=== PATIENT | female | born 2000 | race Caucasian/White ===

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

== ENCOUNTER 2020-03-07 20:29 | Emergency (ER) | payer SELFPAY ==
[2020-03-07 20:45] VITALS: BP 105/77; PULSE 66
[2020-03-07] MEDS ORDERED: predniSONE 20 MG Tab PO ONE (21:05)
[2020-03-07] MEDS: Albuterol/Ipratropium 3.0-0.5 MG/3 ML Neb Soln NEB ONE ×2 (21:10→21:18)
[2020-03-07] MEDS ORDERED: Albuterol/Ipratropium 3.0-0.5 MG/3 ML Neb Soln ONE (21:15)
--- NOTE | 2020-03-07 21:15 | EDM.PDOC ---
ED HPI GENERAL MEDICAL PROBLEM - General Chief Complaint: Respiratory Problem Stated Complaint: BREATHING PROBLEM Time Seen by Provider: 03/07/20 20:42 Source of Information: Reports: Patient History Limitations: Reports: No Limitations - History of Present Illness INITIAL COMMENTS - FREE TEXT/NARRATIVE: 19-year-old female with history of asthma presents with worsening dyspnea over the last week. Denies fever, chest pain, palpitation. She uses her inhaler with no relief. She has been noting a dry cough. Denies sick contacts. She has never been intubated or hospitalized for asthma. ROS: A 10-point review of systems, other than pertinent positives and negatives as stated per HPI, is otherwise negative PHYSICAL EXAM General: AOx4, GCS = 15, No distress HEENT: dry mucous membrane Neck: supple, no meningismus, no Kernig or Brudzinski Cardiac: S1S2 RRR Respiratory: Diminished breath sounds bilaterally with expiratory wheezing, no retractions, able to speak full sentences with no difficulty. Abdomen: Soft, nontender, no rebound or guarding, nondistended, no pulsatile mass. Back: nontender Musculoskeletal: NVI distally, no deformity Neuro: No focal deficits, CN 2 - 12 WNL. Right Chest Pain Score (Numeric/FACES): 5 - Related Data Allergies Allergy/AdvReac Type Severity Reaction Status Date / Time No Known Allergies Allergy Verified 03/07/20 20:41 Home Meds: Home Meds Albuterol [Proair HFA] 2 puff INH ASDIRECTED PRN 03/07/20 [History] Benzonatate 100 mg PO BID #10 capsule 03/07/20 [Rx] predniSONE [Prednisone] 50 mg PO DAILY #5 tablet 03/07/20 [Rx] Past Medical History - Past Health History Medical/Surgical History: Denies Medical/Surgical History Cardiovascular History: Reports: None Respiratory History: Reports: Asthma Gastrointestinal History: Reports: None Genitourinary History: Reports: None Psychiatric History: Reports: Depression Dermatologic History: Reports: None - Infectious Disease History Infectious Disease History: Reports: None - Past Surgical History HEENT Surgical History: Reports: Oral Surgery, Tonsillectomy Cardiovascular Surgical History: Reports: None GI Surgical History: Reports: None Social & Family History - Family History HEENT: Reports: None - Tobacco Use Smoking Status *Q: Former Smoker Used Tobacco, but Quit: Yes Month/Year Tobacco Last Used: 2020 - Caffeine Use Caffeine Use: Reports: Coffee, Energy Drinks, Soda, Tea - Recreational Drug Use Recreational Drug Use: Yes Recreational Drug Type: Reports: Marijuana/Hashish Recreational Drug Use Frequency: Daily ED ROS GENERAL - Review of Systems Review Of Systems: Comprehensive ROS is negative, except as noted in HPI. ED EXAM, GENERAL - Physical Exam Exam: See Below (see dictation) Course - Vital Signs Last Recorded V/S: Last Vital Signs Temp 97.6 F 03/07/20 20:42 Pulse 66 03/07/20 20:42 Resp 17 03/07/20 20:42 BP 105/77 03/07/20 20:42 Pulse Ox 95 03/07/20 20:42 - Orders/Labs/Meds Orders: Active Orders 24 hr Category Date Time Status RT Aerosol Therapy [RC] ASDIRECTED Care 03/07/20 21:05 Active RT Aerosol Therapy [RC] ASDIRECTED Care 03/07/20 21:17 Active Meds: Medications Discontinued Medications Generic Name Dose Route Start Last Admin Trade Name Ramy PRN Reason Stop Dose Admin Albuterol/Ipratropium 3 ml 03/07/20 21:04 03/07/20 21:10 Duoneb 3.0-0.5 Mg/3 Ml NEB 03/07/20 21:05 3 ml ONETIME ONE Administration Albuterol/Ipratropium 3 ml 03/07/20 21:17 03/07/20 21:18 Duoneb 3.0-0.5 Mg/3 Ml NEB 03/07/20 21:18 3 ml ONETIME ONE Administration Albuterol/Ipratropium Confirm 03/07/20 21:15 03/07/20 21:19 Duoneb 3.0-0.5 Mg/3 Ml Administered 03/07/20 21:16 6 ml Dose Administration 6 ml .ROUTE .STK-MED ONE Prednisone 60 mg 03/07/20 21:05 03/07/20 21:11 Prednisone PO 03/07/20 21:06 60 mg ONETIME ONE Administration - Re-Assessments/Exams Free Text/Narrative Re-Assessment/Exam: 03/07/200 After triple DuoNeb treatment and prednisone 60 mg, she improved clinically and is stable for discharge. I performed a repeat examination and the patient has not demonstrated any new abnormal findings. Patient exhibits normal vital signs and has exhibited a normal gait. I advised the patient to return to the ER for reevaluation if symptoms worsened, and to follow up with their PCP within 2-3 days. MEDICAL DECISION MAKING: I reviewed the patients past medical records, lab and radiographic findings. I discussed the case with the patient. My differential diagnosis included: Asthma exacerbation, bronchitis, pneumonia. Chest x-ray did not reveal any underlying infiltrates concerning for infection. I do not suspect COVID given her clinical history. Her clinical presentation is consistent with asthma exacerbation. She improved after breathing treatments and prednisone, she was not hypoxic in the ER, she was not in respiratory distress, and she was able to speak full sentences with no difficulty, I do not think she needs to be hospitalized. Departure - Departure Time of Disposition: 22:10 Disposition: Home, Self-Care 01 Condition: Good Clinical Impression: Exacerbation of asthma - Discharge Information *PRESCRIPTION DRUG MONITORING PROGRAM REVIEWED*: Not Applicable *COPY OF PRESCRIPTION DRUG MONITORING REPORT IN PATIENT NOHELIA: Not Applicable Prescriptions: Benzonatate 100 mg PO BID #10 capsule predniSONE [Prednisone] 50 mg PO DAILY #5 tablet Instructions: Asthma, Adult Referrals: PCP,None [Primary Care Provider] - Forms: ED Department Discharge Additional Instructions: The following information is given to patients seen in the emergency department who are being discharged to home. This information is to outline your options for follow-up care. We provide all patients seen in our emergency department with a follow-up referral. The need for follow-up, as well as the timing and circumstances, are variable depending upon the specifics of your emergency department visit. If you don't have a primary care physician on staff, we will provide you with a referral. We always advise you to contact your personal physician following an emergency department visit to inform them of the circumstance of the visit and for follow-up with them and/or the need for any referrals to a consulting specialist. The emergency department will also refer you to a specialist when appropriate. This referral assures that you have the opportunity for follow-up care with a specialist. All of these measure are taken in an effort to provide you with optimal care, which includes your follow-up. Under all circumstances we always encourage you to contact your private physician who remains a resource for coordinating your care. When calling for follow-up care, please make the office aware that this follow-up is from your recent emergency room visit. If for any reason you are refused follow-up, please contact the [facility] Emergency Department at and asked to speak to the emergency department charge nurse. If you do not have a primary care doctor, please follow up with the clinics below within 3-5 days. [facility] - Primary Care [address] [place], [place] [id number] [place] [address] Sepsis Event Note (ED) - Evaluation Sepsis Screening Result: No Definite Risk - Focused Exam Vital Signs: Vital Signs Temp Pulse Resp BP Pulse Ox 03/07/20 20:42 97.6 F 66 17 105/77 95 - My Orders Last 24 Hours: My Active Orders 03/07/20 21:05 RT Aerosol Therapy [RC] ASDIRECTED 03/07/20 21:17 RT Aerosol Therapy [RC] ASDIRECTED - Assessment/Plan Last 24 Hours: My Active Orders 03/07/20 21:05 RT Aerosol Therapy [RC] ASDIRECTED 03/07/20 21:17 RT Aerosol Therapy [RC] ASDIRECTED
[2020-03-07] MEDS ORDERED: Albuterol/Ipratropium 3.0-0.5 MG/3 ML Neb Soln NEB ONE (21:17)
--- NOTE | 2020-03-07 22:13 | CR ---
Chest: 2 views of the chest were obtained. Comparison: No prior chest imaging. Heart size and mediastinum are normal. Lungs show no acute parenchymal change. Bony structures are within normal limits for the patient's age. Impression: 1. Nothing acute is appreciated on 2 view chest x-ray. Diagnostic code #1 Study was dictated in MDT
[2020-03-07] MEDS ORDERED: Benzonatate 100 MG Cap PO ONE (22:36)
[2020-03-07] MEDS ORDERED: Benzonatate 100 MG Cap ONE (22:36)
== END 2020-03-07 22:39 | disposition home or self-care (01) ==
LOC: MW.ED 20:29
DX: J45.901 Unspecified asthma with (acute) exacerbation (principal); Z87.891 Personal history of nicotine dependence; Z79.899 Other long term (current) drug therapy
CPT/HCPCS: 71046; 94640; 99285; A9270; 99283; J7620-GY

== ENCOUNTER 2020-03-28 14:33 | Emergency (ER) | payer SELFPAY ==
--- NOTE | 2020-03-28 14:42 | EDM.PDOC ---
ED HPI GENERAL MEDICAL PROBLEM - General Chief Complaint: Respiratory Problem Stated Complaint: CHEST PAIN/SOB Time Seen by Provider: 03/28/20 14:35 Source of Information: Reports: Patient History Limitations: Reports: No Limitations - History of Present Illness INITIAL COMMENTS - FREE TEXT/NARRATIVE: HISTORY AND PHYSICAL: History of present illness: Patient is a 19-year-old female who presents to the emergency room with complaints of shortness of breath, cough and intermittent chest pain. Patient was seen in the emergency room on 03/07/2024 for the same symptoms, stating this has been ongoing for approximately 1 month. She had a negative chest x-ray. She was given triple neb and oral prednisone. Discharged home with instruction to follow-up with her primary care provider. She states she did feel some improvement after completing the 5-day course of prednisone but "as soon as it was done I felt like my symptoms came back". She does not have a nebulizer machine available to her at home but has been using her inhaler -does not find much relief with this. The chest pain is generalized and only noticeable when frequently coughing. Patient denies any fever, chills, headache, change in vision, syncope or near syncope. Denies any GI or symptoms. 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 History of asthma. + Former smoker. Review of systems: As per history of present illness and below otherwise all systems reviewed and negative. Past medical history: As per history of present illness and as reviewed below otherwise noncontributory. Surgical history: As per history of present illness and as reviewed below otherwise noncontributory. Social history: See social history for further information Family history: As per history of present illness and as reviewed below otherwise noncontributory. Physical exam: General: Well-developed and well-nourished 19-year-old female. Alert and oriented. Nontoxic-appearing and in no acute distress. VSS and have been reviewed by me. HEENT: Atraumatic, normocephalic, pupils equal and reactive bilaterally, negative for conjunctival pallor or scleral icterus, mucous membranes moist, TMs normal bilaterally, throat clear, neck supple, nontender, trachea midline. No drooling or trismus noted. No meningeal signs. No hot potato voice noted. Lungs: Left posterior base inspiratory wheezing otherwise clear to auscultation, breath sounds equal bilaterally, chest nontender. Heart: S1S2, regular rate and rhythm without overt murmur Abdomen: Soft, nondistended, nontender. Negative for masses or hepatosplenomegaly. Negative for costovertebral tenderness. Skin: Intact, warm, dry. No lesions or rashes noted. Extremities: Atraumatic, moves all extremities per self without difficulty or deficits, negative for cords or calf pain. Neurovascular unremarkable. Neuro: Awake, alert, oriented. Cranial nerves II through XII unremarkable. Cerebellum unremarkable. Motor and sensory unremarkable throughout. Exam nonfocal. Notes: Due to her second visit today; will add COVID screening onto her work-up today- this is negative. My suspicion for a pulmonary embolism is very low. EKG shows a normal sinus rhythm with a rate of 68, no concerning findings are noted. Chest x-ray shows no acute findings. Due to the longevity of her symptoms I am going to put her on a Z-Senthil. She did states she had relief when using the nebulizer machine, will give her a prescription for a machine to be filled at [facility]. We discussed signs and symptoms that would prompt her to return to the emergency room. Voices understanding and is agreeable to plan of care. Denies any further questions or concerns at this time. Diagnostics: CXR, COVID, EKG Therapeutics: None Prescription: Duo Neb, Z-Senthil, Medrol Dosepak Impression: Asthma exacerbation Plan: 1. Your chest x-ray is within normal limits, no obvious pneumonia. Negative COVID-19 screening. Your EKG shows a normal sinus rhythm, no concerns of heart involvement. 2. Please fill the nebulizer prescription and use as directed/needed. 3. Follow up with your primary care provider as we discussed. Return to the ED as needed and as discussed. Definitive disposition and diagnosis as appropriate pending reevaluation and review of above. Duration: Week(s): - Related Data Allergies Allergy/AdvReac Type Severity Reaction Status Date / Time No Known Allergies Allergy Verified 03/28/20 14:42 Home Meds: Home Meds Albuterol [Proair HFA] 2 puff INH ASDIRECTED PRN 03/07/20 [History] Albuterol/Ipratropium [DuoNeb 3.0-0.5 MG/3 ML] 1 ampule INH Q4HR PRN #1 box 03/28/20 [Rx] Azithromycin [Zithromax] 1 dose PO DAILY 5 Days #6 tab 03/28/20 [Rx] methylPREDNISolone [Medrol] 1 dose PO DAILY 6 Days #1 dospk 03/28/20 [Rx] Past Medical History - Past Health History Medical/Surgical History: Denies Medical/Surgical History Cardiovascular History: Reports: None Respiratory History: Reports: Asthma Gastrointestinal History: Reports: None Genitourinary History: Reports: None Psychiatric History: Reports: Depression Dermatologic History: Reports: None - Infectious Disease History Infectious Disease History: Reports: None - Past Surgical History HEENT Surgical History: Reports: Oral Surgery, Tonsillectomy Cardiovascular Surgical History: Reports: None GI Surgical History: Reports: None Social & Family History - Family History HEENT: Reports: None - Caffeine Use Caffeine Use: Reports: Coffee, Energy Drinks, Soda, Tea ED ROS GENERAL - Review of Systems Review Of Systems: Comprehensive ROS is negative, except as noted in HPI. ED EXAM, GENERAL - Physical Exam Exam: See Below (See dictation) Course - Vital Signs Last Recorded V/S: Last Vital Signs Temp 97.4 F 03/28/20 14:43 Pulse 86 03/28/20 14:43 Resp 20 03/28/20 14:43 BP 115/70 03/28/20 14:43 Pulse Ox 98 03/28/20 14:43 - Orders/Labs/Meds Orders: Active Orders 24 hr Category Date Time Status EKG Documentation Completion [RC] STAT Care 03/28/20 14:46 Active Chest 2V [CR] Stat Exams 03/28/20 14:46 Taken Labs: Laboratory Tests 03/28/20 Range/Units 15:08 COVID-19 (JANNETH) NEGATIVE (NEGATIVE) Departure - Departure Time of Disposition: 15:51 Disposition: Home, Self-Care 01 Clinical Impression: Exacerbation of asthma Qualifiers: Asthma severity: moderate Asthma persistence: persistent Qualified Code(s): J45.41 - Moderate persistent asthma with (acute) exacerbation - Discharge Information Prescriptions: Albuterol/Ipratropium [DuoNeb 3.0-0.5 MG/3 ML] 1 ampule INH Q4HR PRN #1 box PRN Reason: Dyspnea methylPREDNISolone [Medrol] 1 dose PO DAILY 6 Days #1 dospk Azithromycin [Zithromax] 1 dose PO DAILY 5 Days #6 tab Instructions: Asthma, Adult, [id number] Referrals: PCP,None [Primary Care Provider] - Forms: ED Department Discharge Additional Instructions: The following information is given to patients seen in the emergency department who are being discharged to home. This information is to outline your options for follow-up care. We provide all patients seen in our emergency department with a follow-up referral. The need for follow-up, as well as the timing and circumstances, are variable depending upon the specifics of your emergency department visit. If you don't have a primary care physician on staff, we will provide you with a referral. We always advise you to contact your personal physician following an emergency department visit to inform them of the circumstance of the visit and for follow-up with them and/or the need for any referrals to a consulting specialist. The emergency department will also refer you to a specialist when appropriate. This referral assures that you have the opportunity for follow-up care with a sp ecialist. All of these measure are taken in an effort to provide you with optimal care, which includes your follow-up. Under all circumstances we always encourage you to contact your private physicia n who remains a resource for coordinating your care. When calling for follow-up care, please make the office aware that this follow-up is from your recent emergency room visit. If for any reason you are refused follow-up, please contact the [facility] Emergency Department at and asked to speak to the emergency department charge nurse. [facility] [address] [place] [id number] [address] Thank you for choosing the [facility] emergency department in [place] for your medical needs today. It was a pleasure caring for you. You were seen in the emergency department for respiratory concerns. 1. Your chest x-ray is within normal limits, no obvious pneumonia. Negative COVID-19 screening. Your EKG shows a normal sinus rhythm, no concerns of heart involvement. Due to your history of asthma and longevity of symptoms I am going to treat you with antibiotics and steroids. 2. Please fill the nebulizer prescription and use as directed/needed. 3. Follow up with your primary care provider as we discussed. Return to the ED as needed and as discussed. Sepsis Event Note (ED) - Focused Exam Vital Signs: Vital Signs Temp Pulse Resp BP Pulse Ox 03/28/20 14:43 97.4 F 86 20 115/70 98 - My Orders Last 24 Hours: My Active Orders 03/28/20 14:46 EKG Documentation Completion [RC] STAT Chest 2V [CR] Stat - Assessment/Plan Last 24 Hours: My Active Orders 03/28/20 14:46 EKG Documentation Completion [RC] STAT Chest 2V [CR] Stat
[2020-03-28 15:08] VITALS: BP 115/70
--- NOTE | 2020-03-28 16:05 | CR ---
Chest: 2 views of the chest were obtained. Comparison: Prior chest x-ray of 03/07/20. Heart size and mediastinum are normal. Lungs are clear with no acute parenchymal change. Bony structures are unremarkable. Impression: 1. Nothing acute is seen on 2 view chest x-ray. Diagnostic code #1 This report was dictated in MDT
[2020-03-28 18:06] VITALS: PULSE 84
== END 2020-03-28 16:31 | disposition home or self-care (01) ==
LOC: MW.ED 14:33
DX: J45.41 Moderate persistent asthma with (acute) exacerbation (principal); Z20.828 Contact with and (suspected) exposure to other viral communicable diseases
CPT/HCPCS: 71046; 71046-26; 93005; 99282; 99285-25; U0002

== ENCOUNTER 2021-10-05 17:02 | Emergency (ER) | payer SELFPAY ==
[2021-10-05 19:16] LABS: BLOOD UREA NITROGEN,BUN 7 mg/dL (7.0-18.0); CARBON DIOXIDE,CO2 23.6 mmol/L (21.0-32.0); CHLORIDE,CL 106 mmol/L (98-107); GLUCOSE RANDOM 96 mg/dL (74-106); POTASSIUM,K 3.9 mmol/L (3.5-5.1); SODIUM,NA 139 mmol/L (136-145)
[2021-10-05 19:33] VITALS: BP 112/73; PULSE 61
== END 2021-10-05 19:38 | disposition home or self-care (01) ==
LOC: MW.ED 17:02
DX: N92.0 Excessive and frequent menstruation with regular cycle (principal); J45.909 Unspecified asthma, uncomplicated; Z72.0 Tobacco use
CPT/HCPCS: 36415; 80053; 81001; 84703; 85025; 99284

== ENCOUNTER 2022-07-25 17:09 | Emergency (ER) | payer SELFPAY ==
[2022-07-25] MEDS ORDERED: cefTRIAXone 1 GM Vial IM ONE (18:06)
[2022-07-25] MEDS ORDERED: Lidocaine 1% PF 2 ML SDV INJECT ONE (18:11)
[2022-07-25] MEDS ORDERED: Phenazopyridine 200 MG Tab PO ONE (18:11)
[2022-07-25 18:43] VITALS: BP 111/58; PULSE 91
== END 2022-07-25 18:42 | disposition home or self-care (01) ==
LOC: MW.ED 17:09
DX: N39.0 Urinary tract infection, site not specified (principal); Z88.0 Allergy status to penicillin
CPT/HCPCS: 81001; 81025; 87086; 96372; 99284; A9270; J0696

== ENCOUNTER 2024-08-06 13:54 | Emergency (ER) | payer BC ==
[2024-08-06 14:25] LABS: BASOPHILS ABSOLUTE AUTO 0.08 K/uL (0.00-0.20); EOSINOPHILS ABSOLUTE AUTO 0.54 K/uL (0.00-0.45); HEMATOCRIT 36.3 % (37.0-47.0); IMMATURE GRAN ABSOLUTE AUTO 0.01 K/uL (0.00-0.05); IMMATURE GRAN PERCENT AUTO 0.1 % (0.0-0.4); LYMPHOCYTES ABSOLUTE AUTO 2.45 K/uL (1.00-4.80); LYMPHOCYTES PERCENT AUTO 31.8 % (24.0-44.0); MEAN CORPUSCULAR HEMOGLOBIN 32.3 pg (28.0-32.0); MEAN CORPUSCULAR HGB CONC 35.8 g/dL (32.0-36.0); MEAN CORPUSCULAR VOLUME 90.1 fL (83.0-99.0); MEAN PLATELET VOLUME 9.8 fL (9.4-12.3); MONOCYTES ABSOLUTE AUTO 0.37 K/uL (0.00-0.80); MONOCYTES PERCENT AUTO 4.8 % (0.0-8.0); NEUTROPHILS ABSOLUTE AUTO 4.25 K/uL (1.80-7.70); NEUTROPHILS PERCENT AUTO 55.3 % (41.0-71.0); PLATELET COUNT,PLT 303 K/uL (150-400); RED BLOOD CELL COUNT 4.03 M/uL (4.10-5.30)
[2024-08-06] MEDS: Ketorolac 30 MG/ML SDV IVPUSH ONE (14:50)
[2024-08-06 14:58] LABS: A/G RATIO 1.2 (0.9-1.6); ALANINE AMINOTRANSFERASE,ALT 32 IU/L (14-63); ALKALINE PHOSPHATASE 53 U/L (46-116); ASPARTATE AMNIOTRANSFERASE,AST 29 IU/L (15-37); BILIRUBIN TOTAL 0.3 mg/dL (0.2-1.0); BLOOD UREA NITROGEN,BUN 7 mg/dL (7.0-18.0); CALCIUM 8.6 mg/dL (8.5-10.1); CARBON DIOXIDE,CO2 28.4 mmol/L (21.0-32.0); CHLORIDE,CL 106 mmol/L (98-107); GLUCOSE RANDOM 87 mg/dL (74-106); POTASSIUM,K 4.1 mmol/L (3.5-5.1); PRO B-TYPE NATRIUR PEPT,BNPPRO 14 pg/mL (0-125); PROTEIN TOTAL,TP 7.3 g/dL (6.4-8.2); SODIUM,NA 144 mmol/L (136-145)
[2024-08-06 15:17] LABS: ESTIMATED GFR 80 mL/min (>60)
[2024-08-06 15:37] VITALS: BP 102/65; PULSE 79
== END 2024-08-06 15:37 | disposition home or self-care (01) ==
LOC: MW.ED 13:54
DX: R06.02 Shortness of breath (principal); J45.909 Unspecified asthma, uncomplicated; Z90.89 Acquired absence of other organs; Z88.0 Allergy status to penicillin; Z88.6 Allergy status to analgesic agent; Z79.51 Long term (current) use of inhaled steroids; Z79.52 Long term (current) use of systemic steroids; Z79.899 Other long term (current) drug therapy
CPT/HCPCS: 36415; 71046; 80053; 83880; 84484; 84703; 85025; 85379; 93005; 96374; 99285; J1885